=== PATIENT | female | born 1985 ===

== ENCOUNTER 2018-02-08 19:08 | Emergency (ER) | payer SELFPAY ==
[2018-02-08 19:27] VITALS: BP 126/86; PULSE 81; RESP 20; TEMP 98.1; O2SAT 100
[2018-02-08] MEDS ORDERED: Naproxen 550 mg Tab PO STA (19:55)
[2018-02-08] MEDS ORDERED: Naproxen 550 mg Tab PO ONE (20:03)
--- NOTE | 2018-02-08 20:54 | C.PDOC ---
History Of Present Illness 32 year old female presents to the ED c/o right foot pain and swelling for the past 2 weeks. Patient reports an iron fell on her foot, patient reports at the beginning she was able to ambulate. Patient reports pain is worsening now. Patient denies other injury, fall, trauma, weakness, numbness. Time Seen by Provider: 02/08/18 19:39 Chief Complaint (Nursing): Lower Extremity Problem/Injury History Per: Patient History/Exam Limitations: no limitations Onset/Duration Of Symptoms: Days Current Symptoms Are (Timing): Still Present Recent travel outside of the [place]: No Additional History Per: Patient - Ankle/Foot Description Of Injury: Struck With Object Currently Unable To: Bend Or Move Past Medical History Reviewed: Historical Data, Nursing Documentation, Vital Signs Vital Signs: Last Vital Signs Temp 98.1 F 02/08/18 19:17 Pulse 81 02/08/18 19:17 Resp 20 02/08/18 19:17 BP 126/86 02/08/18 19:17 Pulse Ox 100 02/08/18 19:17 - Medical History PMH: No Chronic Diseases Surgical History: No Surg Hx Family History: States: Unknown Family Hx - Social History Hx Alcohol Use: No Hx Substance Use: No Review Of Systems Constitutional: Negative for: Fever, Chills Eyes: Negative for: Vision Change Gastrointestinal: Negative for: Nausea, Vomiting Musculoskeletal: Positive for: Foot Pain. Negative for: Leg Pain Skin: Negative for: Rash Neurological: Negative for: Weakness, Numbness Physical Exam - Physical Exam Appears: Non-toxic, No Acute Distress Skin: Normal Color, Warm, Dry Head: Atraumatic, Normacephalic Eye(s): bilateral: Normal Inspection Neck: Normal ROM, Supple Extremity: Normal ROM, Tenderness (dorsal aspect of lateral right foot proximal to base of 5th toe. No ecchymosis, or erythema, no swelling), Capillary Refill (< 2 seconds), No Swelling Pulses: Left Dorsalis Pedis: Normal, Right Dorsalis Pedis: Normal Neurological/Psych: Oriented x3, Normal Speech, Normal Cognition, Normal Motor, Normal Sensation Gait: Steady ED Course And Treatment O2 Sat by Pulse Oximetry: 100 (ON RA) Pulse Ox Interpretation: Normal - Other Rad Right foot X-Ray X-Ray: Interpreted by Me, Viewed By Me Interpretation: No fracture or dislocation Progress Note: Plan: - Naproxen 550 mg PO. - Right foot X-Ray. Patient was placed on an ortho shoe for support. On reassessment, patient is resting comfortably, and is in no acute distress. Patient was instructed to follow up with physician/clinic in 1-2 days for further evaluation. Disposition Counseled Patient/Family Regarding: Diagnosis, Need For Followup, Rx Given - Disposition Referrals: Podiatry Clinic [Outside] Disposition: HOME/ ROUTINE Disposition Time: 20:52 Condition: STABLE Additional Instructions: Please follow up with PMD Take medication as directed Return to ER if worse Prescriptions: Ibuprofen [Motrin] 600 mg PO Q6H #30 tab Instructions: Contusion (DC) Forms: flux - [facility] (Serbian), Gen Discharge Inst Armenian - Clinical Impression Clinical Impression: Foot pain, right - PA / CEMENT MASON APPRENTICE / Resident Statement MD/DO has reviewed & agrees with the documentation as recorded. - Scribe Statement The provider has reviewed the documentation as recorded by the Scribe Ector De La Torre All medical record entries made by the Scribe were at my direction and personally dictated by me. I have reviewed the chart and agree that the record accurately reflects my personal performance of the history, physical exam, medical decision making, and the department course for this patient. I have also personally directed, reviewed, and agree with the discharge instructions and disposition.
--- NOTE | 2018-02-09 11:43 | RAD ---
Right foot three views HISTORY: Pain. Comparison: None available. Findings: Mild hallux valgus deformity. Diffuse osteopenia. Mild subchondral cyst at the base of the 2nd metatarsal bone. No evidence of acute displaced fracture or dislocation. Impression: Mild hallux valgus deformity. Diffuse osteopenia. Mild subchondral cyst at the base of the 2nd metatarsal bone. No evidence of acute displaced fracture or dislocation. If pain persists, consider correlation with MRI.
== END 2018-02-08 21:11 | disposition home or self-care (01) ==
LOC: C.ER 19:08
DX: M79.671 Pain in right foot (principal)